=== PATIENT | male | born 1965 | race Caucasian/White ===

== ENCOUNTER 2017-08-10 23:53 | Observation (INO) | payer OTHER ==
[~2017-08-10] VITALS: Ht 190.5 cm; Wt 134.2 kg
[~2017-08-10 23:53] MED LIST: MOTRIN600 MG PO; NOHOMEMEDS
[2017-08-11 00:16] LABS: HEMATOCRIT 41.7 % (38.0-50.0); HEMOGLOBIN 14.6 G/DL (12.5-16.6); MCH 29.9 PG (29.0-34.0); MCV 85.5 FL (86-99); PLATELET COUNT 213 K/uL (156-360); RBC DIS.WIDTH-CV 13.5 % (11.8-14.6); RED BLOOD COUNT 4.88 M/uL (4.00-5.50); WHITE BLOOD COUNT 8.2 K/uL (4.1-10.2)
[2017-08-11 00:27] LABS: CHLORIDE 105 mEq/L (99-109); POTASSIUM 3.9 mEq/L (3.7-5.4); SODIUM 141 mEq/L (136-147)
[2017-08-11 00:29] LABS: GLUCOSE 73 mg/dL (70-99)
[2017-08-11 00:33] LABS: CREATININE 1.1 mg/dL (0.6-1.3); GFR ESTIMATE (CALCULATED) > 59 mL/min/ (58.99-99999)
[2017-08-11 00:34] LABS: UREA NITROGEN (BUN) 17 mg/dL (9-23)
[2017-08-11 00:37] LABS: TROP-I INTERPRETATION NEGATIVE; TROPONIN-I < 0.01 ng/mL (0.0-0.30)
[2017-08-11] MEDS ORDERED: EXFORGE 5/321 TABLET PO (01:11)
[2017-08-11 02:42] VITALS: BP 135/91
[2017-08-11 07:53] LABS: TROP-I INTERPRETATION NEGATIVE; TROPONIN-I < 0.01 ng/mL (0.0-0.30)
[2017-08-11 07:59] LABS: HDL CHOLESTEROL 37 MG/DL (Desirable>=40); LDL CHOLESTEROL 108 mg/dL (Desirable<100); NON-HDL CHOLESTEROL 131 mg/dL (Desirable<160); TOTAL CHOLESTEROL 168 mg/dL (Desirable<200); TRIGLYCERIDES 116 MG/DL (Normal: <150)
[2017-08-11 08:18] VITALS: BP 109/71
[2017-08-11 09:57] LABS: HEMOGLOBIN A1c (GLYCOHEMOGLOB) 5.7 % (Below 5.7)
[2017-08-11 11:22] VITALS: BP 140/83
[2017-08-11 13:34] LABS: TROP-I INTERPRETATION NEGATIVE; TROPONIN-I < 0.01 ng/mL (0.0-0.30)
== END 2017-08-11 14:55 | disposition home or self-care (01) ==
LOC: EME 23:53 → EDOF 08-11 01:07 → ENRESERV 08-11 01:10 → 5WEST 08-11 02:26
PROVIDERS: Physician Assistant Medical
DX: R07.9 Chest pain, unspecified (principal); I10 Essential (primary) hypertension; E78.5 Hyperlipidemia, unspecified; G47.30 Sleep apnea, unspecified; R06.09 Other forms of dyspnea; R01.1 Cardiac murmur, unspecified; E88.81 Metabolic syndrome and other insulin resistance; R00.2 Palpitations; R06.02 Shortness of breath; R20.0 Anesthesia of skin; R42 Dizziness and giddiness; R53.1 Weakness; K21.9 Gastro-esophageal reflux disease without esophagitis; E66.01 Morbid (severe) obesity due to excess calories; Z68.37 Body mass index [BMI] 37.0-37.9, adult; Z80.1 Family history of malignant neoplasm of trachea, bronchus and lung; Z83.49 Family history of other endocrine, nutritional and metabolic diseases; J30.9 Allergic rhinitis, unspecified; Z88.1 Allergy status to other antibiotic agents; Z91.14 Patient's other noncompliance with medication regimen
CPT/HCPCS: 71046; 80048; 80061; 83036; 84484; 85027; 93005; 99281; 99285; G0378; J1650